=== PATIENT | female | born 1970 | race Caucasian/White ===

== ENCOUNTER 2019-10-24 12:40 | Emergency (ER) | payer OTHER, SELFPAY ==
[~2019-10-24] VITALS: Ht 162.6 cm; Wt 69.0 kg
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
[2019-10-24] MEDS ORDERED: KETOROLAC 30 MG/1 ML IM ONE (13:30)
[2019-10-24] MEDS ORDERED: ONDANSETRON ODT 4 MG PO ONE (13:30)
[2019-10-24] MEDS ORDERED: KETOROLAC 60 MG/2 ML ONE (13:48)
[2019-10-24] MEDS ORDERED: ONDANSETRON 2MG/ML, 2ML ONE (13:48)
[2019-10-24 13:50] LABS: HCT (SEDRATE) 38.2 % (34.6-47.8)
[2019-10-24 13:51] LABS: BASOPHILS # (AUTO) 0.06 x10^3/uL (0-0.1); BASOPHILS % (AUTO) 1 % (0-1); EOSINOPHILS # (AUTO) 0.04 x10^3/uL (0-0.4); EOSINOPHILS % (AUTO) 0 % (1-7); LYMPHOCYTES # (AUTO) 1.93 x10^3/uL (1-3.4); LYMPHOCYTES % (AUTO) 19 % (22-44); MD NO; MEAN CORPUSCULAR HEMOGLOBIN 30.6 pg (27.0-34.8); MEAN CORPUSCULAR HGB CONC 33.2 g/dL (32.4-35.8); MEAN CORPUSCULAR VOLUME 92.2 fL (80-100); MONOCYTES # (AUTO) 0.87 x10^3/uL (0.2-0.8); MONOCYTES % (AUTO) 8 % (2-9); NEUTROPHILS # (AUTO) 7.46 x10^3/uL (1.8-6.8); NEUTROPHILS % (AUTO) 72 % (42-75); PLATELET COUNT 377 x10^3/uL (130-400); RED BLOOD COUNT 4.12 x10^6/uL (3.82-5.3); RED CELL DISTRIBUTION WIDTH 12.5 % (9.6-15.2)
[2019-10-24 13:57] VITALS: BP 138/85
--- NOTE | 2019-10-24 13:58 | NUR ---
BREAK RN: PT RESTING ON [place]. VSS. MEDICATED PER MAY.
[2019-10-24] MEDS ORDERED: KETOROLAC 30 MG/1 ML IVPush ONE (14:00)
[2019-10-24] MEDS ORDERED: ONDANSETRON 2MG/ML, 2ML IVPush ONE (14:00)
[2019-10-24 14:02] LABS: ALANINE AMINOTRANSFERASE 23 U/L (12-78); ALBUMIN 3.4 g/dL (3.4-5.0); ANION GAP 6 mmol/L (5-15); CALCIUM 7.9 mg/dL (8.5-10.1); CHLORIDE 109 mmol/L (98-107); CREATININE 0.81 mg/dL (0.55-1.02)
[2019-10-24 14:04] LABS: ALKALINE PHOSPHATASE 105 U/L (45-117); BILIRUBIN,TOTAL 0.6 mg/dL (0.2-1.0); TOTAL PROTEIN 6.7 g/dL (6.4-8.2)
--- NOTE | 2019-10-24 14:35 | NUR ---
ALL RESULTS ARE BACK AT THIS TIME. CHART UP FOR RECHECK.
== END 2019-10-24 15:16 | disposition home or self-care (01) ==
LOC: ED 14:42
DX: M79.10 Myalgia, unspecified site (principal); R10.9 Unspecified abdominal pain; M54.5 Low back pain; R11.2 Nausea with vomiting, unspecified; M32.9 Systemic lupus erythematosus, unspecified
CPT/HCPCS: 36415; 80053; 83690; 85025; 85651; 96374; 96375; 99284; J1885; J2405

== ENCOUNTER 2020-04-14 07:32 | Emergency (ER) | payer OTHER ==
[~2020-04-14] VITALS: Ht 162.6 cm; Wt 67.0 kg
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
[2020-04-14] MEDS ORDERED: DIPHENHYDRAMINE 50 MG/ML, 1ML ONE (07:56)
[2020-04-14] MEDS ORDERED: DIPHENHYDRAMINE 50 MG/ML, 1ML IM ONE (08:00)
[2020-04-14 08:03] VITALS: BP 120/78
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
[2020-04-14] MEDS ORDERED: ACETAMINOPHEN 325 MG TABLET PO ONE (08:30)
[2020-04-14] MEDS ORDERED: ACETAMINOPHEN 500 MG TABLET ONE (08:37)
--- NOTE | 2020-04-14 08:48 | NUR ---
[employer] at bedside
--- NOTE | 2020-04-14 09:00 | NUR ---
Report given to OUSAMNE Aguilar
--- NOTE | 2020-04-14 09:05 | NUR ---
[employer] DONE WITH INTERVIEW. PT IS VERY ERRATIC, UNABLE TO STAY STILL. PT REMAINS IN BED THOUGH. VSS. PROVIDER UPDATED.
--- NOTE | 2020-04-14 09:32 | NUR ---
PT IS QUITE AGITATED. CLOTHES AND SHOES GIVEN TO PT. SHE CAME IN WEARING SHORT, SHORT SLEEVE SHIRT AND ONE SHOE WITH NO SOCKS. PT REFUSING TO PUT ON CLOTHES AND MORE AGITATED. SECURITY CALLED FOR DC. PT ESCORTED OUT AMBULANCE BAY DOOR FOLLOWED BY SECURITY. RX AND DC PAPER GIVEN TO PT.
== END 2020-04-14 09:35 | disposition home or self-care (01) ==
LOC: ED 09:21
DX: S90.31XA Contusion of right foot, initial encounter (principal); H60.311 Diffuse otitis externa, right ear; M19.90 Unspecified osteoarthritis, unspecified site; Y04.8XXA Assault by other bodily force, initial encounter; Y93.89 Activity, other specified; Y92.410 Unspecified street and highway as the place of occurrence of the external cause; Y99.8 Other external cause status
CPT/HCPCS: 73630; 96372; 99283; J1200

== ENCOUNTER 2020-06-17 09:27 | Emergency (ER) | payer OTHER, MEDICAID ==
[~2020-06-17] VITALS: Ht 162.6 cm; Wt 70.0 kg
--- NOTE | 2020-06-17 09:34 | NUR ---
PT BIB [facility]. PT PICKED UP FROM [facility]. PT CO FREQUENT "BLACKING OUT AND FALLING." PT VERY TEARFUL. PT STATED THAT SHE IS ALWAYS IN PAIN D/T LUPUS AND NERVE PAIN. PT DENIES ANY HEAD OR NECK TRAUMA.
[2020-06-17] MEDS ORDERED: SODIUM CHLORIDE FLUSH 10ML SYR IVF ONE (11:00)
--- NOTE | 2020-06-17 11:08 | NUR ---
PT EDUCATED THAT URINE SAMPLE IS NEEDED. PT STATED THAT SHE IS UNABLE TO URINATE RIGHT NOW, BUT WILL "TRY SOON."
--- NOTE | 2020-06-17 11:30 | NUR ---
PT AMBULATED TO RESTROOM WITHOUT ASSISTANCE.
[2020-06-17 11:39] LABS: BASOPHILS % (AUTO) 1 % (0-1); EOSINOPHILS % (AUTO) 5 % (1-7); LYMPHOCYTES % (AUTO) 34 % (22-44); MEAN CORPUSCULAR HEMOGLOBIN 31.1 pg (27.0-34.8); MEAN CORPUSCULAR HGB CONC 34.3 g/dL (32.4-35.8); MEAN PLATELET VOLUME 9.2 fL (7.4-10.4); MONOCYTES % (AUTO) 9 % (2-9); NEUTROPHILS % (AUTO) 51 % (42-75); PLATELET COUNT 264 x10^3/uL (130-400); RED BLOOD COUNT 4.31 x10^6/uL (3.82-5.3); RED CELL DISTRIBUTION WIDTH 12.5 % (9.6-15.2)
[2020-06-17 11:42] LABS: MD NO
[2020-06-17 11:42] LABS: MICROSCOPIC NOT IND
[2020-06-17 11:52] LABS: CHLORIDE 106 mmol/L (98-107)
[2020-06-17 11:57] LABS: ALANINE AMINOTRANSFERASE 33 U/L (12-78); ALBUMIN 4.5 g/dL (3.4-5.0); ALKALINE PHOSPHATASE 125 U/L (45-117); ANION GAP 4 mmol/L (5-15); BILIRUBIN,TOTAL 0.4 mg/dL (0.2-1.0); CALCIUM 9.4 mg/dL (8.5-10.1); CREATININE 0.94 mg/dL (0.55-1.02); SALICYLATE LEVEL 2.1 mg/dL (2.8-20.0); TOTAL PROTEIN 7.5 g/dL (6.4-8.2)
[2020-06-17 12:02] LABS: AMPHETAMINE SCREEN, URINE Negative (Negative); BARBITURATE SCREEN, URINE Negative (Negative); BENZODIAZEPINE SCREEN, URINE Negative (Negative); CANNABINOID SCREEN, URINE Negative (Negative); COCAINE SCREEN, URINE Negative (Negative); METHADONE SCREEN, URINE Negative (Negative); OPIATE SCREEN, URINE Negative (Negative)
[2020-06-17] MEDS ORDERED: KETOROLAC 60 MG/2 ML ONE (12:22)
[2020-06-17 12:29] VITALS: BP 155/95
--- NOTE | 2020-06-17 12:29 | NUR ---
PT GIVEN PAIN MEDICATION PER MD ORDER. CALL LIGHT WITHIN REACH.
[2020-06-17] MEDS ORDERED: KETOROLAC 30 MG/1 ML IM ONE (12:30)
[2020-06-17 12:56] LABS: FREE T4 (FREE THYROXINE) 0.88 ng/dL (0.76-1.46)
--- NOTE | 2020-06-17 13:48 | NUR ---
DISCHARGE INSTRUCTIONS REVIEWED [facility] PT. ALL QUESTIONS ANSWERED AT THIS TIME
== END 2020-06-17 13:50 | disposition home or self-care (01) ==
LOC: ED 11:12
DX: R55 Syncope and collapse (principal); R10.9 Unspecified abdominal pain; R51.9 Headache, unspecified; M54.2 Cervicalgia
CPT/HCPCS: 36415; 70450; 71045; 72125; 80053; 80299; 80307; 80320; 80329; 81003; 84439; 84443; 85025; 93005; 96372; 99285; J1885; G0480

== ENCOUNTER 2020-10-28 18:09 | Emergency (ER) | payer OTHER, MEDICAID ==
[~2020-10-28] VITALS: Ht 162.6 cm; Wt 63.6 kg
--- NOTE | 2020-10-28 18:17 | NUR ---
BIB EMS FROM [facility] FOR C/O LOWER BACK AND R GLUTE PAIN X 1 MONTH WORSE OVER THE LAST TWO DAYS. STATES SHE DOESN'T KNOW IF SHE MIGHT'VE FALLEN ON IT. PT AMBULATORY WITH FULL ROM AND NO DEFORMITIES NOTED. DENIES DRUG USE TODAY. DENIES ETOH TODAY. 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 PT HAVING A HARD TIME STAYING STILL IN ROOM. STATES PAIN IS VERY SEVERE IN HIP. PT STANDING AND MOVING AND KICKING LEG. DENIES ANY ETOH/DRUG USE TODAY.
--- NOTE | 2020-10-28 18:54 | NUR ---
PT RESTING ON GURNEY. NADN. LAURENT.
[2020-10-28] MEDS ORDERED: HYDROcodone/APAP 5/325 TABLET ONE (19:25)
[2020-10-28] MEDS ORDERED: METHOCARBAMOL 750 MG TABLET ONE (19:25)
[2020-10-28] MEDS ORDERED: METHOCARBAMOL 750 MG TABLET PO ONE (19:30)
[2020-10-28] MEDS ORDERED: HYDROcodone/APAP 5/325 TABLET PO ONE (19:30)
--- NOTE | 2020-10-28 19:52 | NUR ---
PT RESTING ON GURNEY. NADN. LAURENT.
--- NOTE | 2020-10-28 19:53 | NUR ---
PT CHART REVIEWED AND PLACED FOR RECHECK.
--- NOTE | 2020-10-28 20:19 | NUR ---
PT AMBULATORY W/ SHUFFLING GAIT. ERP DR. LIZARRAGA NOTIFIED.
[2020-10-28] MEDS ORDERED: MORPHINE SULFATE 4 MG/ML, 1ML ONE ×2 (20:40→21:13)
[2020-10-28] MEDS ORDERED: HYDROmorphone 2 MG/ML, 1ML ONE (20:52)
--- NOTE | 2020-10-28 20:56 | NUR ---
Task RN: patient medicated per mar and taken to MRI.
[2020-10-28] MEDS ORDERED: MORPHINE SULFATE 4 MG/ML, 1ML IVPush ONE (21:00)
[2020-10-28] MEDS ORDERED: HYDROmorphone 2 MG/ML, 1ML IVPush PRN (21:00)
--- NOTE | 2020-10-28 21:04 | NUR ---
REPORT FROM CELENA ROMEO
--- NOTE | 2020-10-28 21:05 | NUR ---
REPORT GIVEN TO OUSMANE SAMANO.
--- NOTE | 2020-10-28 21:13 | NUR ---
MARIA TERESA GARNETT, . LEAVING MESSAGE FOR PT. CALL [facility]. [phone]
--- NOTE | 2020-10-28 21:21 | NUR ---
MRI CALLED AND STATES PT IS CONSISTENTLY MOVING IN MRI AND IS UNABLE TO PERFORM SCAN. PT HAS DOSE OF MORPHINE AVAILABLE. PT MEDICATED PER MAY. ERVIN SAMANO RN NOTIFIED. Addendum: 10/28/20 at 2122 by HeyStaksYANETH Amendment undone in EDM - 10/28/20 at 2122 by JAY PT ALSO PLACED ON 4L NC ONCE MEDICATED PER MAY.
--- NOTE | 2020-10-28 21:23 | NUR ---
PT PLACED ON 4L NC THIS RN IS UNABLE TO CHECK PT'S PULSE OX IN MRI. JAZMYNE, PRIMARY RN NOTIFIED IN REGARDS TO O2 PLACED PROPHYLACTICALLY.
[2020-10-28] MEDS ORDERED: GADOTERATE 7.5 MMOL/15ML SYR ONE (21:32)
--- NOTE | 2020-10-28 22:04 | NUR ---
relief rn: pt remains in mri
[2020-10-28 22:10] VITALS: BP 138/81
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
[2020-10-28 22:19] LABS: BASOPHILS % (AUTO) 0 % (0-1); EOSINOPHILS % (AUTO) 1 % (1-7); LYMPHOCYTES % (AUTO) 9 % (22-44); MEAN CORPUSCULAR HEMOGLOBIN 31.1 pg (27.0-34.8); MEAN CORPUSCULAR HGB CONC 34.5 g/dL (32.4-35.8); MEAN PLATELET VOLUME 8.7 fL (7.4-10.4); MONOCYTES % (AUTO) 4 % (2-9); NEUTROPHILS % (AUTO) 86 % (42-75); PLATELET COUNT 263 x10^3/uL (130-400); RED BLOOD COUNT 4.65 x10^6/uL (3.82-5.3); RED CELL DISTRIBUTION WIDTH 13.8 % (9.6-15.2)
--- NOTE | 2020-10-28 22:25 | NUR ---
phleb at bs for additional labs. pt aware of npo status until all reports back.
[2020-10-28 22:31] LABS: ALANINE AMINOTRANSFERASE 49 U/L (12-78); ALBUMIN 3.4 g/dL (3.4-5.0); ANION GAP 7 mmol/L (5-15); CHLORIDE 104 mmol/L (98-107); CREATININE 0.68 mg/dL (0.55-1.02)
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
[2020-10-28 22:38] LABS: ALKALINE PHOSPHATASE 132 U/L (45-117); BILIRUBIN,TOTAL 0.5 mg/dL (0.2-1.0); TOTAL PROTEIN 6.9 g/dL (6.4-8.2)
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
== END 2020-10-28 23:45 | disposition home or self-care (01) ==
LOC: ED 22:55
DX: M54.41 Lumbago with sciatica, right side (principal)
CPT/HCPCS: 36415; 72110; 72158; 80053; 85025; 85651; 86140; 96374; 96375; 99285; A9575; J1170; J2270